=== PATIENT | female | born 1990 | race Caucasian/White ===

== ENCOUNTER 2023-11-20 14:16 | Outpatient (CLI) | payer BC, SELFPAY ==
--- NOTE | 2023-11-20 14:21 | US_ITS ---
PROCEDURE: US TRANSVAGINAL CLINICAL INDICATION: irreg. periods COMPARISON: No exams were available for comparison FINDINGS: Transvaginal sonographic images of the pelvis were obtained. UTERUS: 7.9 cm x 6.0cmx 4.2cm anteverted with a combined endometrial thickness of 11mm. LEFT OVARY: 3.0cmx2.8 cmx2.3cm with a volume of 10ml. There are multiple small peripheral follicles RIGHT OVARY: 5.0cmx 3.8 cmx3.5 cm with a volume of 35.1ml. There is a dominant follicle measuring 3.7 cm x 2.8 cm x 2.7 cm. There are several small peripheral follicles. Both ovaries are seen and appear normal. Doppler flow to both ovaries are seen. There is no fluid in the cul-de-sac. IMPRESSION: 1. Anteverted uterus normal in shape and size. The endometrium measures 11 mm. This is somewhat thickened given that her menses ended less than a week ago. Would consider SIS or hysteroscopy to rule out a polyp. 2. Both ovaries are seen and appear polycystic. The left ovary more than the right ovary. There is a 3.7 cm follicle in the right ovary. 3. No fluid in the cul-de-sac. Dictated by: Moisés Ortiz MD 11/20/2023 16:19 Moisés Ortiz MD in OV 11/20/2023 16:19
== END 2023-11-20 23:59 | disposition home or self-care (01) ==
LOC: RAD 14:18
PROVIDERS: Visit Provider Nurse Practitioner Obstetrics & Gynecology
DX: N92.6 Irregular menstruation, unspecified (principal)
CPT/HCPCS: 76830

== ENCOUNTER 2024-02-04 11:56 | Outpatient (CLI) | payer BC, SELFPAY ==
[2024-02-04 12:16] LABS: Basophils # 0.1 K/mm3 (0-0.2); Basophils % 1.1 % (0.1-2.0); Eosinophils # 0.1 K/mm3 (0.0-0.4); Eosinophils % 1.1 % (0.1-12.0); Hematocrit 41.4 % (37.0-47.0); Lymphocytes # 2.3 K/mm3 (0.7-4.5); Lymphocytes % 32.9 % (10-50); Mean Corpuscular HGB Conc 33.9 g/dL (31.8-35.4); Mean Corpuscular Hemoglobin 31.5 pg (27.0-31.2); Mean Corpuscular Volume 92.8 fl (81-99); Mean Platelet Volume 8.7 fl (7.4-10.4); Monocytes # 0.5 K/mm3 (0.1-1.0); Monocytes % 7.4 % (1.7-9.3); Neutrophils % 57.5 % (37.0-80.0); Platelet Count 176 K/mm3 (142-424); Red Blood Count 4.45 M/mm3 (4.20-5.40); White Blood Count 6.9 K/mm3 (4.8-10.8)
[2024-02-04 13:12] LABS: Alanine Aminotransferase 11 U/L (12-78); Albumin Level 4.7 g/dl (3.5-5.0); Albumin/Globulin Ratio 2.2 (1.1-1.8); Alkaline Phosphatase 37 U/L (38-126); Anion Gap 10.6 mEq/L (5-15); Aspartate Amino Transferase 21 U/L (14-36); Bilirubin,Total 0.7 mg/dl (0.2-1.3); Blood Urea Nitrogen 15 mg/dl (7-17); Calcium 9.3 mg/dl (8.4-10.2); Carbon Dioxide 27 mmol/L (22.0-30.0); Chloride 105 mmol/L (98-107); Estimated Glomerular Filt Rate 96 ml/min (>60); GFR (African American) 116 ML/MIN (>60); Globulin 2.1 g/dL (1.3-3.2); Glucose 80 mg/dl (74-100); Potassium 4.6 mmoL/L (3.5-5.1); Sodium 138 mmol/L (136-145); Total Protein,Serum 6.8 g/dl (6.3-8.2)
[2024-02-04 13:34] LABS: HCG,Quantitative < 2 mIU/ml (0-5.42)
== END 2024-02-04 23:59 | disposition home or self-care (01) ==
LOC: LAB 11:57
PROVIDERS: Visit Provider Nurse Practitioner Obstetrics & Gynecology
DX: Z01.818 Encounter for other preprocedural examination (principal); N92.0 Excessive and frequent menstruation with regular cycle; N84.0 Polyp of corpus uteri
CPT/HCPCS: 36415; 80053; 84702; 85025

== ENCOUNTER 2024-02-10 07:38 | Day surgery (SDC) | payer BC, SELFPAY ==
[2024-02-05 08:31] VITALS: BMI 22.1
[2024-02-10] VITALS (10 sets, daily range): BP systolic 103–124; BP diastolic 60–78; PULSE 65–77; RESP 16–18; TEMP 36.4–36.6; O2SAT 97–99
--- NOTE | 2024-02-10 07:59 | EXP.ANES.CKL ---
[facility] Disclaimer: The information contained in this section may have been updated after the patient was seen, as this information can be updated by other users. Medical History Herpes History of endometriosis History of ectopic Surgical History History of tonsillectomy History of partial surgical removal of colon History of unilateral salpingectomy left H/O tubal ligation Family History Other Family history of heart disease Social History (Updated 02/10/24 @ 07:59 by Nia Lema RN) Smoking Status: Current every day smoker alcohol intake: former substance use type: former substance user current occupational status: employed Travel in the last 8 weeks: None [facility] Anesthesia Checklist Patient Identification Patient Identification: Arm Band and Verbal (Name & ) Structural Data Admitted From: Home Planned Operative Procedure/s: Hysteroscopy, D&C, Myosure Consent for Planned Operative Procedure(s) Verified: Yes Verified Documents: Surgical Consent and History and Physical NPO Status Verified Time NPO: 20:00 Chart Verification Results Verified: CBC, BMP and HCG Additional verifications Patient : No Anesthesia Reactions: No Cardiovascular Assessment Heart Sounds: S1 & S2 Pulse Rhythm: Irregular Peripheral Edema: No Airway Assessment Mallampati Score:: Class II C-Spine Mobility Assessed: Yes (FROM demonstrated) TMJ Mobility Assessed: Yes (+Popping from Left jaw upon mouth opening. No pain per pt.) Dentition: Good Dentition (Nothing loose per pt.) Neurological Assessment Level of Consciousness: Awake, Alert, Appropriate and Follows Commands Hx Seizures: No Numbness or tingling in extremities: No Anesthesia Plan Anesthesia Risk discussed: Yes Anesthesia Plan: Verified ASA Class: II Anesthesia Type: General
[2024-02-10] MEDS: 0.9 % SODIUM CHLORIDE 1000ML 1,000 ML 25 ML IV (08:14)
[2024-02-10] MEDS: CEFAZOLIN SODIUM 2 GM in 0.9 % SODIUM CHLORIDE 100 ML IV (08:52)
[2024-02-10] MEDS: ROPIVACAINE 0.5% 30ML VIAL 150 MG (09:15)
--- NOTE | 2024-02-10 09:37 | P.PNANES_ITS ---
[facility] Anesthesia Record Part I Anesthesia Record I Intake, IV Amount: 700 Hydration: Adequate Estimated blood loss (mL): 25 Urine output (mL): 0 Blood Products used (#): none Blood Pressure: 108/76 SaO2: 97 Pulse Rate: 77 Airway Patency: Patent (Pt. Talking after removal of oral airway.) Respiratory Rate: 16 Temperature: 97.5 F Patient is:: Awake, Oral/Nasal airway (9.[address] upon arrival to PACU. Removed @0934) and Stable Stable to PACU at:: 09:34
--- NOTE | 2024-02-10 09:47 | EXP.OP.NOTE ---
Date of procedure: 02/10/24 Pre-op Diagnosis:: Irregular menses, menorrhagia, possible polyp. Post-op Diagnosis:: Irregular menses, menorrhagia, polyp Procedure performed:: Hysteroscopy, MyoSure endometrial sampling Surgeon:: Moisés Ortiz MD [employer]:: Janeen Morales Anesthesia: LMA Estimated blood loss (mL): 50 Clinical Note:: She is a 33-year-old who complains of heavy periods. She has also had some intra menstrual bleeding. An ultrasound performed shortly after her period showed that the endometrium was somewhat thickened. As result of that she was offered hysteroscopy, MyoSure sampling of the endometrium. It was felt that she possibly had a polyp. Operative findings:: She had an anteverted uterus and the endometrium appeared somewhat lush and there appeared to be small polyps in the lower uterine segment near the internal cervical os. The endometrium was also erythematous possibly consistent with endometritis. Both tubal ostia were seen and appeared normal. Operative note:: She was taken the operating room where LMA anesthesia was found be adequate. She is prepped draped normal sterile fashion in the lithotomy position. A weighted speculum is placed in vagina and the anterior lip of the cervix was grasped with a tenaculum. Altman dilators were used to dilate the cervix to approximately 6 mm. I then inserted a MyoSure hysteroscope into the uterine cavity. The findings were as previously dictated. Then using the MyoSure device I resected the posterior aspect of the endometrium as well as most of the rest of the endometrium. These were sent to pathology. I then injected 30 cc of half percent ropivacaine at the 3:00, 5:00, 7:00, 9:00 positions of the cervix. She tolerated procedure well and was taken to the recovery room in excellent condition. All sponge, instrument and needle counts were correct. Estimated blood loss was less than 50 cc. Condition: stable Disposition: PACU Specimens:: Endometrial sampling Complications:: None
[2024-02-10] MEDS: ACETAMINOPHEN 500MG TAB 1000 MG PO (09:59)
--- NOTE | 2024-02-10 14:12 | P.PNANES_ITS ---
[facility] Anesthesia Record Part II Anesthesia Record Part II Discharge Time: 09:59 Destination: Surgical Day Care (OP Surgery) PACU nurse assessment reviewed?: Yes Patient Condition:: Good Anesthesia Complications:: None Swallowing reflex intact?: Yes Airway Patency: Patent Cyanosis?: No Blood Pressure: 107/60 SaO2: 98 Respiratory Rate: 18 Pulse Rate: 66 Temperature: 97.5 F Mental Status: Alert & Oriented Pain level:: 0 Nausea and/or vomitting:: None Intake, IV Amount: 700 Hydration: Adequate
== END 2024-02-10 10:30 | disposition home or self-care (01) ==
PROVIDERS: Visit Provider Nurse Practitioner Obstetrics & Gynecology
PROC: (CPT 58558; principal; 2024-02-10 09:00)
DX: N92.6 Irregular menstruation, unspecified (principal); N92.0 Excessive and frequent menstruation with regular cycle; N84.0 Polyp of corpus uteri
CPT/HCPCS: 58558; 96374; J0690; J1100; J1885; J2250; J2405; J7030